=== PATIENT | female | born 1995 | race Two or more races ===

== ENCOUNTER 2019-05-16 00:22 | Emergency (ER) | payer SELFPAY ==
[~2019-05-16] VITALS: Ht 165.1 cm; Wt 72.7 kg
[2019-05-16] MEDS ORDERED: KETOROLAC TROMETHAMINE 60 MG/2 ML VIAL IM ONE (02:00)
[2019-05-16 04:00] VITALS: BP 122/79
== END 2019-05-16 04:16 | disposition home or self-care (01) ==
LOC: EMS 00:26
DX: S00.33XA Contusion of nose, initial encounter (principal); J32.9 Chronic sinusitis, unspecified; Y04.2XXA Assault by strike against or bumped into by another person, initial encounter; Y93.89 Activity, other specified; Y92.89 Other specified places as the place of occurrence of the external cause; Y99.8 Other external cause status
CPT/HCPCS: 70486; 96372; 99284; J1885